=== PATIENT | male | born 2005 | race Caucasian/White ===

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

== ENCOUNTER 2024-08-14 11:47 | Emergency (ER) | payer BC ==
[~2024-08-14] VITALS: Ht 185.4 cm; Wt 99.5 kg
[2024-08-14 12:05] VITALS: BP 115/67
[2024-08-14] MEDS ORDERED: AZIT250T13 PO (13:06)
[2024-08-14] MEDS ORDERED: ALBU8HFA INH (13:06)
[2024-08-14] MEDS ORDERED: BENZ-38 PO (13:06)
[2024-08-14 13:25] VITALS: PULSE 67; RESP 17; TEMP 98.2; O2SAT 99
== END 2024-08-14 13:24 | disposition home or self-care (01) ==
LOC: ER 11:48
DX: J22 Unspecified acute lower respiratory infection (principal); F12.90 Cannabis use, unspecified, uncomplicated
CPT/HCPCS: 99283